=== PATIENT | female | born 2000 | race Caucasian/White ===

== ENCOUNTER → 2022-09-16 12:34 | Outpatient (CLI) | payer OTHER, SELFPAY ==
[2022-09-16 13:25] LABS: Add Manual Diff / Slide Review NO; Basophils Absolute Auto 0 /uL (0-100); Basophils Percent Auto 0.2 % (0-2); Eosinophils Absolute Auto 100 /uL (0-450); Eosinophils Percent Auto 1.8 % (2-4); Hematocrit 38.7 % (36-46); Hemoglobin 13.5 g/dL (12.0-16.0); Lymphocytes Absolute Auto 700 /uL (1100-4500); Lymphocytes Percent Auto 9.8 % (25-40); Mean Corpuscular HGB Conc 34.9 % (30-36); Mean Corpuscular Hemoglobin 31.2 PG (26-34); Mean Corpuscular Volume 89.4 fL (80-100); Monocytes Absolute Auto 700 /uL (0-900); Monocytes Percent Auto 10.4 % (3-14); Neutrophils Absolute Auto 5200 /uL (1500-7000); Neutrophils Percent Auto 77.8 % (50-75); Platelet Count 214 X10^3/uL (150-400); Red Blood Cell Count 4.33 X10^6/uL (4.0-5.2); White Blood Cell Count 6.7 X10^3/uL (4.5-11.0)
[2022-09-16 14:27] LABS: Appearance Urine UA CLEAR; Bilirubin Urine UA NEGATIVE (NEGATIVE); Color Urine UA YELLOW; Glucose Urine UA NEGATIVE (Negative); Ketones Urine UA NEGATIVE (NEGATIVE); Leukocyte Esterase Urine UA NEGATIVE (NEGATIVE); Nitrite Urine UA NEGATIVE (Negative); Occult Blood Urine UA NEGATIVE (Negative); Protein Urine UA NEGATIVE (Negative); Specific Gravity Urine UA <=1.005 (1.000-1.035); Urobilinogen Urine UA 0.2 E.U./dL (0.2)
[2022-09-16 17:41] LABS: Hepatitis B Surface Antigen NEGATIVE s/c (NEGATIVE)
[2022-09-16 17:51] LABS: HIV 1 & 2 Ab/Ag 4th Gen Combo NEGATIVE (NEGATIVE); Hep C Virus Ab w/Reflex Quant NEGATIVE s/c (NEGATIVE)
[2022-09-17 07:43] LABS: RPR Screen Non Reactive (Non Reactive)
[2022-09-17 11:32] LABS: Varicella IgG Antibody 612 index (Immune >165)
== END ==
PROVIDERS: Referring Provider Family Medicine; Visit Provider Family Medicine
DX: Z34.01 Encounter for supervision of normal first pregnancy, first trimester (principal)
CPT/HCPCS: 36415; 80055; 81003; 86787; 86803; 86850; 86900; 86901; 87086; 87389

== ENCOUNTER → 2022-11-19 14:36 | Outpatient (CLI) | payer OTHER, SELFPAY ==
[2022-11-21 21:05] LABS: Estriol, Free 1.29 ng/mL (.); Inhibin A, Dimeric 99.49 pg/mL (.); Inhibin A, MoM 0.63 (.); Maternal Ethnicity Caucasian (.); Maternal Weight 141 lbs (.); Number of Fetuses No (.); OSBR Risk 1 IN 7603 (.); Results Report (.); Test Results *Screen Negative* (.); hCG, Serum 29395 mIU/mL (.)
[2022-11-26 10:05] LABS: AFP PDF SCANNED
== END ==
PROVIDERS: PCP Family Medicine; Referring Provider Family Medicine; Visit Provider Family Medicine
DX: Z34.02 Encounter for supervision of normal first pregnancy, second trimester (principal); Z3A.17 17 weeks gestation of pregnancy
CPT/HCPCS: 36415; 82105; 82677; 84702; 86336

== ENCOUNTER → 2022-12-02 12:37 | Outpatient (CLI) | payer OTHER, SELFPAY ==
--- NOTE | 2022-12-02 12:38 | DI.US.S_ITS ---
PROCEDURE: US OB >= 14 WEEKS FETUS INDICATIONS: ANATOMY OUTSIDE/PRIOR DATING DATA: Last menstrual period (LMP): 07/30/2022. LMP-based estimated date of delivery (CAMERON): 04/26/2023. The calculations are made using the clinical CAMERON of 04/26/2023. TECHNIQUE: Real-time scanning was performed of the fetus, with image documentation and biometric measurements. Endovaginal scanning: Not performed COMPARISON: None. FINDINGS: General: A single living intrauterine gestation is present. Presentation: Breech. Placenta: Placental position is anterior , without previa. Amniotic fluid index: 12.6 cm, normal range is 5-24 cm. Single deepest vertical pocket is 3.9 cm. heart rate: 150 beats per minute. Maternal cervical canal: 3.9 cm long. Normal lower limit is 2.5 cm. biometrics: Biparietal diameter: 4.3 cm, 19 weeks 1 day Head circumference: 16.8 cm, 19 weeks 3 days Abdominal circumference: 15.0 cm, 20 weeks 2 days Femur length: 3.0 cm, 19 weeks 1 day Clinically estimated gestational age: 19 weeks 2 days Composite gestational age from present scan: 19 weeks 4 days Estimated weight and percentile: 307 g, 69th percentile Anatomic survey: Neuro: Ventricles are non-dilated at less than 10 mm. Cisterna magna is normal at 3-11 mm. Cerebellum is normal in size and morphology. Nuchal skin fold: Normal at less than 6 mm between 14-21 weeks gestational age. Face: Nose and lips, facial profile are normal. Spine: No evidence for spina bifida. Heart: 4-chambered heart is present, with normal ventricular outflow tracts. Diaphragm: Diaphragm is intact. Stomach: Left-sided stomach is present. Kidneys: No hydronephrosis. Normal is less than 5 mm in 2nd trimester, less than 7 mm in 3rd trimester. Cord: 3-vessel cord has orthotopic insertion. Bladder: Normal in size. Extremities: All 4 extremities identified. IMPRESSION: 1. Single live intrauterine dating 19 weeks and 4 days. 2. Normal anatomical survey. We strive to produce accurate, complete, and clear reports of imaging services. To assist us in improving patient care, this report was composed using standard report templates and voice recognition software. Therefore, it may contain abnormal punctuation, insertions and/or omissions. Occasional wrong-word or sound-alike substitutions may occur. Though we review the report and make efforts to correct it, we do recommend that the report be read carefully in proper context to recognize any text inaccuracies. Dictated by: Jose Roberto Jean Baptiste M.D. on 12/02/2022 at 14:26 Approved by: Jose Roberto Jean Baptiste M.D. on 12/02/2022 at 14:32
== END ==
PROVIDERS: PCP Family Medicine; Referring Provider Family Medicine; Visit Provider Family Medicine
DX: Z3A.19 19 weeks gestation of pregnancy; Z34.02 Encounter for supervision of normal first pregnancy, second trimester
CPT/HCPCS: 76811

== ENCOUNTER → 2023-02-10 11:17 | Outpatient (CLI) | payer OTHER, SELFPAY ==
[2023-02-10 13:32] LABS: Add Manual Diff / Slide Review NO; Basophils Absolute Auto 0 /uL (0-100); Basophils Percent Auto 0.2 % (0-2); Eosinophils Absolute Auto 100 /uL (0-450); Eosinophils Percent Auto 0.4 % (2-4); Hematocrit 36.4 % (36-46); Hemoglobin 12.6 g/dL (12.0-16.0); Lymphocytes Absolute Auto 900 /uL (1100-4500); Lymphocytes Percent Auto 6.8 % (25-40); Mean Corpuscular HGB Conc 34.6 % (30-36); Mean Corpuscular Hemoglobin 32.2 PG (26-34); Monocytes Absolute Auto 800 /uL (0-900); Monocytes Percent Auto 5.8 % (3-14); Neutrophils Absolute Auto 11600 /uL (1500-7000); Neutrophils Percent Auto 86.8 % (50-75); Platelet Count 237 X10^3/uL (150-400); Red Blood Cell Count 3.92 X10^6/uL (4.0-5.2); Red Cell Distribution Width 13.2 % (11.6-14.8); White Blood Cell Count 13.3 X10^3/uL (4.5-11.0)
[2023-02-10 14:46] LABS: GTT (PREG) 1 Hour PP 50gm Dose 79 mg/dL (76-139)
== END ==
PROVIDERS: PCP Family Medicine; Referring Provider Family Medicine; Visit Provider Family Medicine
DX: Z34.01 Encounter for supervision of normal first pregnancy, first trimester (principal); Z3A.29 29 weeks gestation of pregnancy
CPT/HCPCS: 36415; 82950; 85025; 86850

== ENCOUNTER → 2023-04-01 11:16 | Outpatient (CLI) | payer OTHER, SELFPAY ==
[2023-04-02 08:08] LABS: Strep Grp B PCR NEG for Grp B Strep
== END ==
PROVIDERS: PCP Family Medicine; Visit Provider Family Medicine
DX: Z34.01 Encounter for supervision of normal first pregnancy, first trimester (principal)
CPT/HCPCS: 87653

== ENCOUNTER 2023-04-28 15:03 | Outpatient (CLI) | payer OTHER, SELFPAY ==
--- NOTE | 2023-04-28 15:41 | PM.OBTRLD ---
Visit Information Visit Information Date of evaluation: 04/28/23 Primary OB Provider: Liz Haider Comments/Additional reasons for admission: Pt is a 22yo at 40w2d here for contractions. Lost her mucus plug earlier this morning. No other vaginal bleeding or LOF. FOR[facility]LY [facility] Medical History (Updated 04/28/23 @ 16:53 by Liz Haider MD) Recurrent UTI Surgical History (Updated 08/15/22 @ 15:33 by Maria Guadalupe Ho, RN) [place] teeth extracted Family History (Updated 08/15/22 @ 15:37 by Maria Guadalupe Ho, RN) Family/Other Ovarian cancer Breast cancer Grandmother A-fib Family/Other A-fib Family/Other A-fib Grandfather Leukemia Father Type 1 diabetes Family/Other Graves disease Grandfather Polycystic kidney disease Social History marital status: unmarried,living together number of children: 0 household members: significant other lives independently: Yes caregiver/support person: No housing: apartment pets and animals: Yes (puppy, lizard) education level: college occupational status: employed current occupational exposures/hazards: Yes special que needs: No travel history: over 6 months ago seatbelt use: always helmet use: No water heater temp set < 120 deg: Yes working smoke detector in home: Yes fire extinguisher in home: Yes carbon monox detector in home: Yes firearms in home: No do you feel safe at home: Yes Smoking Status: Never smoker second hand exposure: No alcohol intake: former substance use type: does not use during the past year weight has: remained stable well-balanced diet: about half the time daily servings fruits/ve-4 caffeine: Yes (aware of 200mg limit) Type(s) of exercise: walking, weight lifting and yoga frequency: 3-4 times per week Evaluation Evaluation Baseline heart rate: 130 Variability: Moderate (11-25) monitor accelerations: Present Monitor Decelerations: Absent Contraction Frequency (minutes): 4 Category of Tracing: Reactive Cervical dilation (cm): 1 Cervical effacement (%): 80 station: -1 Diagnosis, Plan/Disposition Final Diagnosis (1) Irregular contractions: Status: Acute Plan/Disposition Plan: Pt is a 22yo at 40w2d here for contractions. Pt with minimal cervical change since clinic. Safe for d/c to walking/home. Return precautions discussed. OB Disposition: home
== END 2023-04-28 15:55 | disposition home or self-care (01) ==
LOC: LABOR 15:14 → OB 04-29 11:26
PROVIDERS: PCP Family Medicine; Referring Provider Family Medicine; Visit Provider Family Medicine
DX: O47.1 False labor at or after 37 completed weeks of gestation (principal); O09.513 Supervision of elderly primigravida, third trimester; Z3A.40 40 weeks gestation of pregnancy
CPT/HCPCS: 59025; G0378; G0379

== ENCOUNTER 2023-04-28 18:12 | Observation (INO) | payer OTHER, SELFPAY | END 2023-04-28 20:39 | disposition home or self-care (01) | LOC: LABOR 18:14 | PROVIDERS: Admitting Provider Family Medicine; PCP Family Medicine; Referring Provider Family Medicine; Visit Provider Family Medicine | DX: O47.1 False labor at or after 37 completed weeks of gestation (principal); O48.0 Post-term pregnancy; Z3A.40 40 weeks gestation of pregnancy | CPT/HCPCS: 59050; G0378; G0379 ==

== ENCOUNTER 2023-04-28 22:57 | Inpatient (IN) | payer OTHER, SELFPAY ==
[2023-04-28 23:25] VITALS: BP 132/80
[2023-04-29] MEDS: fentaNYL 100 MCG/2 ML INJ 50 MCG IV (00:15)
[2023-04-29 00:36] LABS: Add Manual Diff / Slide Review NO; Basophils Absolute Auto 100 /uL (0-100); Basophils Percent Auto 0.3 % (0-2); Eosinophils Absolute Auto 0 /uL (0-450); Hematocrit 36.5 % (36-46); Hemoglobin 12.9 g/dL (12.0-16.0); Lymphocytes Absolute Auto 500 /uL (1100-4500); Lymphocytes Percent Auto 2.7 % (25-40); Mean Corpuscular HGB Conc 35.3 % (30-36); Mean Corpuscular Volume 90.7 fL (80-100); Monocytes Absolute Auto 500 /uL (0-900); Monocytes Percent Auto 2.8 % (3-14); Neutrophils Absolute Auto 16100 /uL (1500-7000); Neutrophils Percent Auto 94.2 % (50-75); Platelet Count 215 X10^3/uL (150-400); Red Blood Cell Count 4.03 X10^6/uL (4.0-5.2); Red Cell Distribution Width 13.4 % (11.6-14.8); White Blood Cell Count 17.1 X10^3/uL (4.5-11.0)
--- NOTE | 2023-04-29 02:06 | PM.AN.REGBLK ---
Regional Block <Jt Esquivel MD - Last Filed: 04/29/23 15:36> Pre-procedure PMH/ROS narrative: [id number], no significant PMH, negative ROS. PSH/Anesthesia history narrative: None Exam narrative: Labor otherwise normal exam. ASA Class: II Labs: Hct 36.5 % (36-46) 04/29/23 00:26 Plt Count 215 X10^3/uL (150-400) 04/29/23 00:26 Medications: Current Medications Generic Name Dose Route Start Last Admin Trade Name Freq PRN Reason Stop Dose Admin Carboprost Tromethamine 250 mcg 04/28/23 23:27 Carboprost 250 Mcg/Ml Ampul IM Q90M PRN Bleeding Diphenhydramine HCl 25 mg 04/29/23 02:02 Diphenhydramine 50 Mg/Ml Vial IV Q10M PRN Pruritis Ephedrine Sulfate 5 mg 04/29/23 02:02 Ephedrine 50 Mg/Ml Vial IV Q5M PRN Blood pressure decrease more than 20% of baseline. Fentanyl 50 mcg 04/28/23 23:56 04/29/23 00:15 Fentanyl 100 Mcg/2 Ml Inj IV 50 mcg Q1H PRN Administration Pain, Severe (7-10) Oxytocin/Lactated Ringer's 30 unit in 500 mls @ 200 mls/hr 04/28/23 23:27 Oxytocin Premix IV CONT PRN Bleeding Protocol Tranexamic Acid 1,000 mg/ 100 mls @ 200 mls/hr 04/28/23 23:27 Sodium Chloride IV NOW PRN Bleeding Lactated Ringer's 1,000 mls @ 100 mls/hr 04/28/23 23:30 Lactated Ringers IV CONT KASI FENT 2MCG/ML BUPIV 0.125% EPI 200 mcg in 100 mls @ 6 mls/hr 04/29/23 02:15 Fentanyl/Bupiv/Ns 2mcg/Ml - 0.125% EPIDURAL CONT KASI Lidocaine HCl 20 ml 04/28/23 23:27 Lidocaine 1% 20 Ml INJ INTRA-OP PRN Post Delivery Methylergonovine Maleate 0.2 mg 04/28/23 23:27 Methylergonovine 0.2 Mg Tablet PO Q6HR PRN Heavy Bleeding Methylergonovine Maleate 0.2 mg 01/15/24 23:27 Methylergonovine 0.2 Mg/Ml Vial IM NOW PRN Bleeding Misoprostol 800 mcg 04/28/23 23:27 Misoprostol 200 Mcg Tablet CA NOW PRN Bleeding Misoprostol 400 mcg 04/28/23 23:27 Misoprostol 200 Mcg Tablet SL NOW PRN Bleeding Nalbuphine HCl 2.5 mg 04/29/23 02:02 Nalbuphine 20 Mg/Ml Ampul IV Q10M PRN Pruritis Naloxone HCl 0.2 mg 04/28/23 23:27 Naloxone 0.4 Mg/Ml Vial IV Q2MIN PRN Opiate Reversal Oxytocin 10 unit 04/28/23 23:27 Oxytocin 10 Unit/Ml Vial IM NOW PRN Bleeding Allergies: Allergies Allergy/AdvReac Type Severity Reaction Status Date / Time No Known Drug Allergies Allergy Unverified 04/22/23 10:26 Procedure Insertion date: 04/29/23 Insertion time: 01:10 Prep/Local: betadine x3 and 1% lidocaine Interspace: L3-L4 Patient position: sitting Needle: 18 gauge Maxine Loss of resistance with: air (+ Saline) EVI at (cm): 7 Catheter placed at SKIN (cm): 14 Catheter in SPACE (cm): 7 Insertion: No CSF, No Blood, No Paresthesia with insertion, No Paresthesia with injection and No Test dose reaction Initial Medications TEST DOSE time: :32 BOLUS DOSE time: :33 BOLUS DOSE (mL): 7 BOLUS DOSE med: other (2% Lidocaine) Infusion INFUSION: 0.125% bupivacaine and with fentanyl 2 mcg/mL Initial rate (mL/hr): 6 (PCEA 3ml, lockout 15min, 1hr limit 18ml.) Subsequent interventions: 0630: Rate increased to 8ml/hr. 09:10 Called for air in epidural infusion bag after bag ran dry. Line primed and air cleared. Pt reports left-sided pain with contractions. Clinician bolus given and pump settings adjusted. Pt appears comfortable after interventions. KR Post-procedure Anesthesia date START: 04/29/23 Anesthesia time START: 01:00 Anesthesia date END: 04/29/23 Anesthesia time END: 13:07 Post-procedure Anesthesia Assessment: Yes CV function: HR/BP stable, Yes Resp function: RR/sat/airway adequate, Yes Post-op hydration adequate, Yes Pain control adequate, Yes Nausea & vomiting absent, Yes Temperature > 36 C, Yes Mental status appropriate and Yes Anesthesia complications <Christelle Reyes, DO - Last Filed: 04/29/23 09:41> Infusion Subsequent interventions: 09:10 Called for air in epidural infusion bag after bag ran dry. Line primed and air cleared. Pt reports left-sided pain with contractions. Clinician bolus given and pump settings adjusted. Pt appears comfortable after interventions. KR
[2023-04-29] MEDS: ONDANSETRON 4 MG/2 ML INJ IV (04:51)
[2023-04-29] MEDS: FENT 2MCG/ML BUPIV 0.125% EPI 200 MCG/100 ML PLAST..BAG 6 MCG EPIDURAL (07:59)
--- NOTE | 2023-04-29 09:41 | P.HPOB_ITS ---
OB HPI Date/Time Date of admission: 04/29/23 Date Patient Seen: 04/29/23 History of Present Condition Chief complaint: CONTRACTIONS CAMERON Calculator 2 Estimated Delivery Date Method Current WG Current Estimate 04/26/23 Manual 40w 3d Final CAMERON - BO Other Estimates 04/15/23 LMP (Certain) 42w 0d 04/26/23 Ultrasound #1 40w 3d Estimated Gestational Age (weeks): 40w3d : 1 Para: 0 Narrative: 22yo at 40w3d here with regular contractions. Pt reports contractions starting yesterday afternoon, increasing in intensity and frequency. She has had some bloody show. No LOF. The pt has had no significant complications with her . care: good care, initiated at week # (8) and pounds weight gain (57) Dating criteria OB: based on 1st trimester US only Ultrasounds: normal 1st trimester US and normal mid trimester US Obstetrical complications: none Medical complications OB: none Preadmission Labs Last OB Lab Results: 2 Blood Type A Positive 04/29/23 00:26 Antibody Screen Negative 04/29/23 00:26 Hematocrit 36.5 % (36-46) 04/29/23 00:26 Hemoglobin 12.9 g/dL (12.0-16.0) 04/29/23 00:26 Hepatitis B Surface Antigen Negative s/c (NEGATIVE) 09/16/22 12 :42 Hepatitis C Antibody Negative s/c (NEGATIVE) 09/16/22 12:42 Rubella Antibody 15.0 IU/mL (>15) 09/16/22 12:42 Varicella-Zoster IgG Antibody 612 index (Immune >165) 09/16/22 12:42 Glucose 1 Hour 79 mg/dL (76-139) 02/10/23 12:14 Group B Streptococcus (PCR) Neg for grp b strep 04/01/23 11:16 -: Urine: negative Genetic Screens: Quad screen: Normal External Labs -: Urine: negative Evaluation Evaluation Baseline heart rate: 125 Variability: Moderate (11-25) monitor accelerations: Present Monitor Decelerations: Absent Contraction Frequency (minutes): 4 Uterine Contraction Intensity: Strong/Firm Status: Category l Dilation (cm): 7 Effacement (%): 90 station: -1 Position of cervix: anterior Consistency: soft [facility] Medical History (Updated 04/28/23 @ 16:53 by Liz Haider MD) Recurrent UTI Surgical History (Updated 08/15/22 @ 15:33 by Maria Guadalupe Ho, RN) [place] teeth extracted Family History (Updated 08/15/22 @ 15:37 by Maria Guadalupe Ho, RN) Family/Other Ovarian cancer Breast cancer Grandmother A-fib Family/Other A-fib Family/Other A-fib Grandfather Leukemia Father Type 1 diabetes Family/Other Graves disease Grandfather Polycystic kidney disease Social History marital status: unmarried,living together number of children: 0 household members: significant other lives independently: Yes caregiver/support person: No housing: apartment pets and animals: Yes (puppy, lizard) education level: college occupational status: employed current occupational exposures/hazards: Yes special que needs: No travel history: over 6 months ago seatbelt use: always helmet use: No water heater temp set < 120 deg: Yes working smoke detector in home: Yes fire extinguisher in home: Yes carbon monox detector in home: Yes firearms in home: No do you feel safe at home: Yes Smoking Status: Never smoker second hand exposure: No alcohol intake: former substance use type: does not use during the past year weight has: remained stable well-balanced diet: about half the time daily servings fruits/ve-4 caffeine: Yes (aware of 200mg limit) Type(s) of exercise: walking, weight lifting and yoga frequency: 3-4 times per week Meds Home Medications and Allergies Home Medications Medication Instructions Recorded Confirmed Type ascorbic acid (vitamin C) 250 mg 250 mg PO DAILY 08/15/22 04/22/23 History chewable tablet prenat.vits,gael,abj-unus-sekfk 1 tab PO DAILY 08/15/22 04/22/23 History Allergies Allergy/AdvReac Type Severity Reaction Status Date / Time No Known Drug Allergies Allergy Unverified 04/22/23 10:26 OB Exam Resp Effort & Inspection: normal respiratory effort Auscultation: clear to auscultation bilaterally Cardio Rate: regular rate Rhythm: regular rhythm Heart Sounds: S1 normal, S2 normal and no murmurs GI Inspection: non-distended Palpation: Yes soft and No tender Presentation: vertex Objective Labs 04/29/23 00:26 Labs: Laboratory Results - last 24 hr 04/29/23 00:26 WBC 17.1 H RBC 4.03 Hgb 12.9 Hct 36.5 MCV 90.7 MCH 32.0 MCHC 35.3 RDW 13.4 Plt Count 215 Neut % (Auto) 94.2 H Lymph % (Auto) 2.7 L [place] % (Auto) 2.8 L Eos % (Auto) 0.0 L Baso % (Auto) 0.3 Neut # (Auto) 34964 H Lymph # (Auto) 500 L [place] # (Auto) 500 Eos # (Auto) 0 Baso # (Auto) 100 Blood Type A Positive Antibody Screen Negative Assessment and Plan Assessment and Plan Assessment and Plan narrative: 22yo at 40w3d here in active labor. GBS negative, Rh positive. No complications with . After informed consent, AROM performed with clear fluid present. - Expectant management, anticipate - FHT reassuring - GBS negative, no prophylaxis indicated - Epidural in place for pain control, working well
[2023-04-29] MEDS: LACTATED RINGERS 1,000 ML 100 ML IV (10:53)
[2023-04-29] MEDS: LACTATED RINGERS 500 ML 1000 ML IV (13:14)
[2023-04-29] MEDS: LIDOCAINE 1% 20 ML INJ (13:50)
--- NOTE | 2023-04-29 14:14 | PM.OBPRVD ---
Labor & Delivery Delivery date: 04/29/23 Intrapartal Events: None Cervical ripening method: none Induction method: none Delivery augmentation: rupture of membranes Delivery monitor: external FHT and external uterine Route of delivery: Episiotomy description: None L&D Laceration Description: Perineal - 1st Degree Quantitative Blood Loss: 200 Anesthesia Type: Epidural Complications: None Narrative: PROCEDURE: at 40w3d presented in active labor and was admitted to Labor and Delivery. The patient progressed through the 1st stage over 10 hours. AROM occured at 7:51 with clear fluid. Pain was controlled with an epidural. The patient progressed through the 2nd stage over 1.5 hours and delivered a viable female infant with APGARs 9/9 at 13:07 via without complications. The cord was cut and clamped after it stopped pulsating. A true knot was noted in the umbilical cord. The placenta delivered with gentle cord traction, and appeared complete. The perineum and vagina were inspected with 1st degree perineal laceration repaired with 3-O Chromic for hemostasis. Needle and sponge counts were correct.? The vagina was inspected and no items were left in situ. Ilda was doing well with [place], her and her , To, at bedside. PREPROCEDURE DIAGNOSIS: Intrauterine at 40w3d GBS negative RH positive POSTPROCEDURE DIAGNOSIS: Intrauterine at 40w3d, delivered Same as preprocedure [place] Baby 1: Infant gender: Female Presentation: vertex Position: Left Occiput Anterior Placenta delivery description: Spontaneous Cord Vessel Description: 3 Vessels and True Knot score (1 min): 9 score (5 min): 9 weight: 7 lb 6.168 oz Plan for aftercare: Routine care
[2023-04-29] MEDS: IBUPROFEN 600 MG TABLET PO ×2 (15:08→20:38)
[2023-04-29] MEDS: DERMOPLAST SPRAY 20% 60 ML 1 SPRAY TOP (19:22)
[2023-04-29] MEDS: ACETAMINOPHEN 325 MG TABLET 650 MG PO (19:23)
[2023-04-29] MEDS: LANOLIN OINT 7 GM 1 APPLIC TOP (19:23)
[2023-04-30] MEDS: ACETAMINOPHEN 325 MG TABLET 650 MG PO ×3 (01:08→13:58)
[2023-04-30] MEDS: IBUPROFEN 600 MG TABLET PO ×2 (04:01→10:37)
[2023-04-30] MEDS: DOCUSATE 100 MG CAPSULE PO (08:13)
[2023-04-30] MEDS: PRENATAL VIT,CALC/IRON/FOLIC 1 TABLET 1 TAB PO (08:13)
--- NOTE | 2023-04-30 11:09 | PM.OBDS.1 ---
Discharge Providers Provider Date of admission: 04/28/23 22:57 Discharge Date: 04/30/23 Primary care physician: Bianca Brand DO Consults: 04/28/23 23:27 Consult to Anesthesiology Urgent Comment: Consulting Provider: Anesthesiologist Reason for consultation: Epidural 04/30/23 14:13 Consult to Finished Goods Stock Clerk Routine Comment: Discharge provider: Liz Haider MD Summary Hospital Course Date Patient Seen: 04/30/23 Diagnoses: 40w3d gestation GBS negative RH positive Hospital Course: The pt presented in active labor. She received an epidural for pain control. AROM was performed with clear fluid present. She progressed to complete and had an of a viable baby girl without complications. A first degree perineal laceration was repaired for hemostasis. , there were no complications. At the time of discharge she was voiding, ambulating, and passing flatus without difficulty. Her lochia was decreasing appropriately. Her pain was well controlled. She was with improving latch with the nipple shield. She will f/u in 6 weeks for check. She is undecided regarding contraception. Peripartum Data Infant Delivery Method: Natural Vaginal Laceration Description: Perineal - 1st Degree Episiotomy description: None Procedures: Spontaneous vaginal delivery complications: none [place] 1: Gender: Female Disposition of : home Status at Discharge Cognitive/behavioral status at discharge: oriented Functional status at discharge: independent ambulation Overall status at discharge: patient is progressing back to baseline Time Spent with Patient Time attestation: Total time spent providing and/or coordinating discharge services: Objective Labs 04/29/23 00:26 Exam Narrative Exam Narrative: Gen: NAD, sitting comfortably in bed, appears well CV: RRR, no murmurs Resp: clear to auscultation bilaterally Abd: soft, appropriately tender, fundus firm and below the umbilicus, nondistended Ext: no edema Discharge Plan Discharge Plan Patient Disposition: Home Discharge orders & Medications Prescriptions: New acetaminophen 325 mg Tablet 650 mg PO Q6HR PRN (Reason: Pain, Mild (1-3)) Qty: 30 0RF docusate sodium 100 mg Capsule 100 mg PO DAILY Qty: 30 0RF ibuprofen 600 mg Tablet 600 mg PO Q6HR PRN (Reason: Pain, Mild (1-3)) Qty: 30 0RF Continued prenat.vits,gael,wyu-bicl-vpttr Tablet 1 tab PO DAILY ascorbic acid (vitamin C) 250 mg tablet,chewable 250 mg PO DAILY Follow up/Referrals: Bianca Brand DO [Primary Care Provider] - Liz Haider MD [Physician] - (You can schedule your six week follow up visit with Dr. Haider at your baby's appointment.) Diet/Activity/Treatments Diet: Diet as Tolerated and Regular Skin/Wound/Dressing Care Report to your healthcare provider any signs of infection, such as:: chills, fever, increased pain and unusual drainage Visit Report/Discharge Packet Instructions: DI for Labor and Delivery, Vaginal Stand Alone Forms: Discharge: Care, Patient Portal/API, Stroke Signs & Symptoms Discharge Data Primary Care Provider: Bianca Brand
[2023-04-30 16:15] VITALS: BP 114/86; PULSE 69; TEMP 37
== END 2023-04-30 15:58 | disposition home or self-care (01) | DRG 806 ==
PROVIDERS: Admitting Provider Family Medicine; PCP Family Medicine; Referring Provider Family Medicine; Visit Provider Family Medicine
DX: O70.0 First degree perineal laceration during delivery (principal); O47.1 False labor at or after 37 completed weeks of gestation; Z37.0 Single live birth; Z3A.40 40 weeks gestation of pregnancy; O48.0 Post-term pregnancy
CPT/HCPCS: 36415; 59025; 59050; 59400; 85025; 86850; 86900; 86901; G0378; G0379; J2405; J3010

== ENCOUNTER → 2025-01-24 13:20 | Outpatient (CLI) | payer OTHER, SELFPAY ==
[2025-01-24 14:48] LABS: Add Manual Diff / Slide Review NO; Hematocrit 38.3 % (36-46); Hemoglobin 13.4 g/dL (12.0-16.0); Lymphocytes Absolute Auto 1300 /uL (1100-4500); Mean Corpuscular HGB Conc 35.1 % (30-36); Mean Corpuscular Hemoglobin 30.9 PG (26-34); Mean Corpuscular Volume 88.3 fL (80-100); Platelet Count 249 X10^3/uL (150-400)
[2025-01-24 14:49] LABS: Appearance Urine UA CLEAR; Bilirubin Urine UA NEGATIVE (NEGATIVE); Color Urine UA YELLOW; Glucose Urine UA NEGATIVE (Negative); Ketones Urine UA NEGATIVE (NEGATIVE); Leukocyte Esterase Urine UA NEGATIVE (NEGATIVE); Nitrite Urine UA NEGATIVE (Negative); Occult Blood Urine UA NEGATIVE (Negative); Protein Urine UA NEGATIVE (Negative); Specific Gravity Urine UA 1.025 (1.000-1.035); Urobilinogen Urine UA 0.2 E.U./dL (0.2)
[2025-01-24 14:53] LABS: pH Urine UA 6.0 (4.5-8.0)
[2025-01-24 16:07] LABS: Hepatitis B Surface Antigen NEGATIVE s/c (NEGATIVE)
[2025-01-24 16:27] LABS: HIV 1 & 2 Ab/Ag 4th Gen Combo NEGATIVE (NEGATIVE); Hep C Virus Ab w/Reflex Quant NEGATIVE s/c (NEGATIVE)
== END ==
PROVIDERS: PCP Family Medicine; Referring Provider Family Medicine; Visit Provider Family Medicine
DX: Z34.80 Encounter for supervision of other normal pregnancy, unspecified trimester (principal)
CPT/HCPCS: 36415; 80055; 81003; 86787; 86803; 86850; 86900; 86901; 87086; 87389

== ENCOUNTER → 2025-02-21 14:33 | Outpatient (CLI) | payer OTHER, SELFPAY | PROVIDERS: PCP Family Medicine; Referring Provider Family Medicine; Visit Provider Family Medicine | DX: Z34.80 Encounter for supervision of other normal pregnancy, unspecified trimester (principal) | CPT/HCPCS: 36415; 82105; 82677; 84702; 86336 ==

== ENCOUNTER → 2025-03-22 08:43 | Outpatient (CLI) | payer OTHER, SELFPAY ==
--- NOTE | 2025-03-22 08:46 | DI.US.S_ITS ---
PROCEDURE: US OB >= 14 WEEKS FETUS INDICATIONS: anatomy OUTSIDE/PRIOR DATING DATA: Last menstrual period (LMP): 10/29/2024 LMP-based estimated date of delivery (CAMERON): 08/05/2025. First dating scan (date and location): 12/29/2024. Estimated date of delivery (CAMERON) from first dating scan: 08/12/2025. TECHNIQUE: Real-time scanning was performed of the fetus, with image documentation and biometric measurements. Endovaginal scanning: No COMPARISON: [facility], OB >= 14 WEEKS FETUS, 12/02/2022, 12:59. FINDINGS: General: A single living intrauterine gestation is present. Presentation: Transverse. Placenta: Placental position is posterior , without previa. Amniotic fluid index: 16.1 cm, normal range is 5-24 cm. Single deepest vertical pocket is 7.6 cm. heart rate: 147 beats per minute. Maternal cervical canal: 3.4 cm long. Normal lower limit is 2.5 cm. biometrics: Biparietal diameter: 19 weeks 4 days Head circumference: 20 weeks Abdominal circumference: 21 weeks Femur length: 20 weeks 3 days Clinically estimated gestational age: 19 weeks 4 days Composite gestational age from present scan: 20 weeks 2 days Estimated weight and percentile: 367 g, 95th percentile Anatomic survey: Neuro: Ventricles are non-dilated at less than 10 mm. Cisterna magna is normal at 3-11 mm. Cerebellum is normal in size and morphology. Nuchal skin fold: Normal at less than 6 mm between 14-21 weeks gestational age. Face: Nose and lips, facial profile are normal. Spine: No evidence for spina bifida. Heart: 4-chambered heart is present, with normal ventricular outflow tracts. Diaphragm: Diaphragm is intact. Stomach: Left-sided stomach is present. Kidneys: No hydronephrosis. Normal is less than 5 mm in 2nd trimester, less than 7 mm in 3rd trimester. Cord: 3-vessel cord has orthotopic insertion. Bladder: Normal in size. Extremities: All 4 extremities identified. IMPRESSION: 1. Single living IUP redemonstrated and interval growth is upper limits of normal with estimated weight 95th percentile. 2. Normal anatomic survey. We strive to produce accurate, complete, and clear reports of imaging services. To assist us in improving patient care, this report was composed using standard report templates and voice recognition software. Therefore, it may contain abnormal punctuation, insertions and/or omissions. Occasional wrong-word or sound-alike substitutions may occur. Though we review the report and make efforts to correct it, we do recommend that the report be read carefully in proper context to recognize any text inaccuracies. Cyst Dictated by: Juan MAIER Interpreted: Farhat Alcantar MD on 03/22/2025 at 9:59 Transcribed by: JAY on 03/22/2025 at 10:09 Approved by: Farhat Alcantar M.D. on 03/22/2025 at 13:16
== END ==
PROVIDERS: PCP Family Medicine; Referring Provider Family Medicine; Visit Provider Family Medicine
DX: Z34.82 Encounter for supervision of other normal pregnancy, second trimester (principal); Z3A.20 20 weeks gestation of pregnancy
CPT/HCPCS: 76811

== ENCOUNTER → 2025-03-23 09:54 | Outpatient (CLI) | payer OTHER, SELFPAY ==
[2025-03-23 10:33] LABS: Add Manual Diff / Slide Review NO; Hematocrit 36.2 % (36-46); Hemoglobin 12.7 g/dL (12.0-16.0); Lymphocytes Absolute Auto 1000 /uL (1100-4500); Mean Corpuscular HGB Conc 35.1 % (30-36); Mean Corpuscular Hemoglobin 31.6 PG (26-34); Mean Corpuscular Volume 89.9 fL (80-100); Platelet Count 203 X10^3/uL (150-400)
[2025-03-23 12:44] LABS: GTT (PREG) 1 Hour PP 50gm Dose 42 mg/dL (76-139)
== END ==
PROVIDERS: PCP Family Medicine; Referring Provider Family Medicine; Visit Provider Family Medicine
DX: Z34.80 Encounter for supervision of other normal pregnancy, unspecified trimester (principal)
CPT/HCPCS: 36415; 82950; 85025; 86850